=== PATIENT | male | born 1935 | race Caucasian/White ===

== ENCOUNTER → 2016-03-12 | Outpatient (CLI) | payer MEDICARE, BC ==
[~2016-03-12] MED LIST: ATEN25TA PO; DIAZ5TAB PO; DICL1TAB63 PO; LEVA500T PO; LIPI20TA PO; MELO-1 PO; METO25TA3 PO; OMEP20CA2 PO; OXYC1TAB63 PO; WALKER WHEELS/F1 MIS; XARE10TA PO
[2016-03-12 11:52] LABS: AUTOMATED NEUTROPHIL # 6.9 TH/MM3 (1.8-7.7); BASOPHIL % 0.5 % (0.0-2.0); EOSINOPHIL # 0.1 TH/MM3 (0-0.4); EOSINOPHIL % 0.9 % (0.0-4.0); HEMATOCRIT 45.6 % (39.0-51.0); HEMO FLAGS DIFF FINAL; LYMPH % 14.9 % (9.0-44.0); LYMPHOCYTE # 1.4 TH/MM3 (1.0-4.8); MEAN CORPUSCULAR HEMOGLOBIN 31.1 PG (27.0-34.0); MEAN CORPUSCULAR HGB CONC 34.2 % (32.0-36.0); MONO % 7.7 % (0.0-8.0); PLATELET COUNT 322 TH/MM3 (150-450); RED BLOOD COUNT 5.02 MIL/MM3 (4.50-5.90); RED CELL DISTRIBUTION WIDTH 13.5 % (11.6-17.2); WHITE BLOOD COUNT 9.1 TH/MM3 (4.0-11.0)
[2016-03-12 11:57] LABS: APTT (PATIENT) 26.9 SEC (24.3-30.1); INTERNATIONAL NORMALIZED RATIO 1.2 RATIO; PROTHROMBIN TIME - PATIENT 13.5 SEC (9.8-11.6)
[2016-03-12 12:22] LABS: ALKALINE PHOSPHATASE 126 U/L (45-117); ALT (GPT) 28 U/L (12-78); ANION GAP 7 MEQ/L (5-15); AST (GOT) 16 U/L (15-37); BICARBONATE 29.8 MEQ/L (21.0-32.0); BLOOD UREA NITROGEN 12 MG/DL (7-18); CHLORIDE 104 MEQ/L (98-107); GLOMERULAR FILTRATION RATE 90 ML/MIN (>89); GLUCOSE,FASTING 119 MG/DL (74-99); POTASSIUM 4.2 MEQ/L (3.5-5.1); SODIUM (NA) 141 MEQ/L (136-145); TOTAL BILIRUBIN ADULT 0.6 MG/DL (0.2-1.0)
[2016-03-12 12:29] LABS: BLOOD, URINE NEG (NEG); GLUCOSE,URINE NEG (NEG); KETONE, URINE NEG (NEG); MUCUS URINE FEW /lpf (OCC); NITRITE,URINE NEG (NEG); PH, URINE 5.5 (5.0-8.5); URINE COLOR YELLOW (YELLW/STRAW)
[2016-03-12 12:36] LABS: COMMENT (UR) CULT NOT INDICATED; CULTURE IF INDICATED CULT NOT INDICATED
--- NOTE | 2016-03-13 12:09 | EKG ---
Date Performed: 03/12/2016 Time Performed: 11:18:06 PTAGE: 80 years EKG: Sinus rhythm WITH SINUS ARRHYTHMIA NONSTEPECIFIC ST DEPRESSION ABNORMAL ECG PREVIOUS TRACING : 06/01/2004 11.04 DOCTOR: Armen Barrera Interpretating Date/Time 03/13/2016 12:07:57
== END ==
LOC: CPRE 10:36
PROVIDERS: ATTEND Orthopaedic Surgery Sports Medicine
DX: Z01.810 Encounter for preprocedural cardiovascular examination (principal); Z01.811 Encounter for preprocedural respiratory examination; Z01.812 Encounter for preprocedural laboratory examination; M79.609 Pain in unspecified limb; Z96.60 Presence of unspecified orthopedic joint implant; R94.31 Abnormal electrocardiogram [ECG] [EKG]
CPT/HCPCS: 36415; 80053; 81001; 85025; 85610; 85730; 93005

== ENCOUNTER 2016-03-25 10:48 | Observation (INO) | payer MEDICARE, BC ==
[~2016-03-25] VITALS: Ht 180.3 cm; Wt 62.8 kg
[~2016-03-25 10:48] MED LIST changes: -ATEN25TA PO; -DICL1TAB63 PO; -LEVA500T PO; -MELO-1 PO; -OXYC1TAB63 PO; -WALKER WHEELS/F1 MIS; -XARE10TA PO
[2016-03-25 11:00] VITALS: BP 111/65; PULSE 66; RESP 16; TEMP 97.6; O2SAT 99
[2016-03-25] MEDS ORDERED: VANCOMYCIN HCL 1000 MG VIAL ONE (11:37)
[2016-03-25] MEDS ORDERED: SODIUM CHLOR 0.9% 250 ML INJ 250 ML ONE (11:37)
[2016-03-25] MEDS ORDERED: PROPOFOL 200 MG/20 ML AMP IV ONE (12:00)
[2016-03-25] MEDS ORDERED: GENTAMICIN SULFATE 80 MG/2 ML VIAL ONE (12:07)
[2016-03-25] MEDS ORDERED: INSULIN HUMAN REGULAR 1,000 UNITS/10 ML VIAL SQ PRN (12:30)
[2016-03-25] MEDS ORDERED: TRANEXAMIC ACID 1 GM PRIOR TO PROCEDURE IV SCH ×2 (12:30)
[2016-03-25] MEDS ORDERED: METOPROLOL TARTRATE 25 MG TAB PO PRN (12:30)
[2016-03-25] MEDS ORDERED: TRANEXAMIC ACID 1 GM POST-OP IV SCH ×2 (12:30)
[2016-03-25] MEDS ORDERED: CHLORHEXIDINE GLUCONATE 4% SOLN 120 ML BTL TOP SCH (12:30)
[2016-03-25] MEDS ORDERED: LACTATED RINGER'S 1000 ML IV SCH (12:30)
[2016-03-25] MEDS ORDERED: ceFAZolin 2 GM PREMIX 50 ML IV SCH (12:30)
[2016-03-25] MEDS ORDERED: SODIUM CHLORID 0.9% 500 ML IV SCH (12:30)
[2016-03-25] MEDS ORDERED: VANCOMYCIN 1000 MG/NS 250 ML (for <70 kg) IV SCH ×2 (12:30)
[2016-03-25] MEDS ORDERED: MIDAZOLAM HCL 5 MG/5 ML VIAL ONE (13:28)
[2016-03-25] MEDS ORDERED: MIDAZOLAM HCL 2 MG/2 ML VIAL ONE (14:27)
[2016-03-25] MEDS ORDERED: fentaNYL CITRATE 250 MCG/5 ML AMP ONE (14:27)
[2016-03-25] MEDS ORDERED: ACETAMINOPHEN 1000 MG/100 ML VIAL IV ONE (14:27)
[2016-03-25] MEDS ORDERED: FAMOTIDINE 20 MG/2 ML VIAL ONE (14:27)
[2016-03-25] MEDS ORDERED: HYDROmorphone HCL PF 2 MG/ML VIAL ONE (15:00)
[2016-03-25] MEDS ORDERED: BUPIVACAINE LIPOSO PF 1.3% INJ 20 ML in SODIUM CHLORIDE 0.9% INJ 40 ML PERIART ONE (16:00)
[2016-03-25] MEDS: LACTATED RINGER'S 1000 ML INJ 1,000 ML IV SCH (18:00)
[2016-03-25] MEDS ORDERED: SODIUM CHLORIDE 0.9% FLUSH 5 ML FLUSH IVF PRN (18:00)
[2016-03-25] MEDS ORDERED: MORPHINE SULFATE 30 MG/30 ML PCA IV SCH (18:00)
[2016-03-25] MEDS ORDERED: MISCELLANEOUS NURSING INFORMATION XX PRN (18:00)
[2016-03-25] MEDS ORDERED: oxyCODONE/ACETAMINOPHEN 5 MG/325 MG TAB PO PRN (18:00)
[2016-03-25] MEDS ORDERED: NALOXONE HCL 0.4 MG/ML AMP IV PRN (18:00)
[2016-03-25] MEDS ORDERED: ZOLPIDEM TARTRATE 5 MG TAB PO PRN (18:00)
[2016-03-25] MEDS ORDERED: MISCELLANEOUS PHARMACY INFORMATION XX ONE (18:00)
[2016-03-25] MEDS ORDERED: Post-op Orders (for Pharmacy) MISC XX ONE (18:00)
[2016-03-25] MEDS ORDERED: ONDANSETRON HCL 4 MG/2 ML VIAL IVP PRN (18:00)
--- NOTE | 2016-03-25 18:06 | PD.OP ---
Operative Report Preoperative Diagnosis: (1) Osteoarthritis of left knee Postoperative Diagnosis: (1) Osteoarthritis of left knee Procedure: Left knee unicompartmental replacement Anesthesia: Femoral block and General Surgeon: Davion Armenta MD Painter Mirror(s): John FORTE Operation and Findings: see op note Davion Armenta MD Mar 25, 2016 18:06
[2016-03-25] MEDS ORDERED: DO NOT ADM ANY ANTICOAGULANT DRUGS XX PRN (18:15)
[2016-03-25] MEDS ORDERED: *MEPERIDINE 25 MG INJ VIAL PERIprocedural Use ONLY ONE (18:24)
[2016-03-25] MEDS ORDERED: LORazepam 2 MG/ML VIAL ONE (18:55)
--- NOTE | 2016-03-25 19:20 | RADRPT ---
EXAM DATE/TIME: 03/25/2016 18:48 [facility] COMPARISON: No previous studies available for comparison. INDICATIONS : Post operative left knee. MEDICAL HISTORY : None. SURGICAL HISTORY : None. ENCOUNTER: Initial ACUITY: 1 day PAIN SCORE: Non-responsive. LOCATION: Left knee. FINDINGS: Changes of medial compartment arthroplasty noted, appears intact and normally aligned. No loose shreyas s seen. No acute complication demonstrated. CONCLUSION: Expected radiographic appearance after medial compartment arthroplasty. Juan Jose Catalan MD on March 25, 2016 at 19:17 Board Certified Radiologist. This report was verified electronically.
[2016-03-25] MEDS: SODIUM CHLORIDE 0.9% FLUSH 5 ML FLUSH IVF SCH (21:00)
[2016-03-25 22:30] VITALS: BP 127/67; PULSE 105; RESP 21; TEMP 96.7; O2SAT 96
[2016-03-26] VITALS (7 sets, daily range): BP systolic 124–160; BP diastolic 63–75; PULSE 93–129; RESP 17–20; TEMP 96.8–99; O2SAT 93–96
[2016-03-26] MEDS: PCA - TOTAL MG MORPHINE DELIVERED PER SHIFT SCH ×3 (03:26→22:00)
[2016-03-26] MEDS: LACTATED RINGER'S 1000 ML INJ 1,000 ML IV SCH ×2 (06:30→18:31)
--- NOTE | 2016-03-26 08:30 | PD.ORT.PN ---
Subjective Subjective Remarks Patient comfortable. Pain controlled. Objective Vitals Vital Signs Date Time Temp Pulse Resp B/P Pulse Ox O2 Delivery O2 Flow Rate FiO2 03/26/16 04:59 97.8 93 18 124/67 95 03/26/16 03:26 16 03/26/16 00:56 96.8 107 18 140/69 96 03/25/16 22:30 96.7 105 21 127/67 96 03/25/16 21:00 97.7 84 16 130/80 97 Nasal Cannula 2 03/25/16 20:00 84 14 130/72 99 Nasal Cannula 2 03/25/16 19:30 97.0 69 13 129/77 97 Nasal Cannula 2 03/25/16 19:15 72 15 128/74 98 Nasal Cannula 2 03/25/16 19:00 88 14 146/69 96 Nasal Cannula 2 03/25/16 18:46 20 03/25/16 18:45 85 14 140/85 98 Nasal Cannula 2 03/25/16 18:30 78 15 141/74 95 Nasal Cannula 2 03/25/16 18:15 85 16 150/78 100 Nasal Cannula 2 03/25/16 18:00 85 14 148/65 100 Nasal Cannula 2 03/25/16 17:42 97.1 86 14 138/78 98 Nasal Cannula 2 03/25/16 11:00 97.6 66 16 111/65 99 I/O 03/25/16 03/25/16 03/25/16 03/26/16 03/26/16 03/26/16 07:00 15:00 23:00 07:00 15:00 23:00 Intake Total 1325 ml 240 ml Output Total 820 ml 300 ml Balance 505 ml -60 ml Intake Oral 240 ml IV Total 325 ml Other 1000 ml Output Urine Total 670 ml 300 ml Estimated Blood Loss 150 ml # Voids 1 2 # Bowel Movements 0 Procedures Left Knee Unicompartmental Arthroplasty Objective Remarks Left knee annabel wrap and knee immobilizer in place calves soft negative homans NVI Assessment & Plan Ortho Post Op Day #: 1 Problem List: Assessment and Plan Pain management - Percocet DVT prophylaxis - Xarelto Physical therapy - WBAT Orthopedically stable of discharge D/C planning - Home with [facility] today F/U in [address] Armenta or REANNA in office John Preston Mar 26, 2016 08:30
[2016-03-26] MEDS ORDERED: XARE10TA PO (08:36)
[2016-03-26] MEDS ORDERED: WALKER WHEELS/F1 MIS (08:36)
[2016-03-26] MEDS ORDERED: OXYC1TAB63 PO (08:36)
--- NOTE | 2016-03-26 08:38 | HHI.FF ---
Face to Face Verification Diagnosis: (1) Osteoarthritis of left knee Physical Therapy Gait training Knee: Other (Unicompartmental arthroplasty), Full weight bearing Right LE Weight Bearing: WB as tolerated Right LE Range of Motion: Active ROM Left LE Weight Bearing: WB as tolerated Left LE Range of Motion: Active Assistive ROM I have seen patient Luis Enrique Sumner on 03/26/16. My clinical findings support the need for the requested home health care services because: High risk of falls I certify that my clinical findings support that this patient is homebound because: Post-op weakness John Preston Mar 26, 2016 08:38
[2016-03-26] MEDS: SODIUM CHLORIDE 0.9% FLUSH 5 ML FLUSH IVF SCH ×2 (08:49→21:00)
[2016-03-26] MEDS: oxyCODONE/ACETAMINOPHEN 5 MG/325 MG TAB PO PRN (10:55)
[2016-03-26] MEDS: RIVAROXABAN 10 MG TAB PO SCH (16:21)
[2016-03-26] MEDS ORDERED: DIAZEPAM 5 MG TAB PO ONE (18:15)
[2016-03-27 03:22] VITALS: BP 144/72; PULSE 119; RESP 18; TEMP 100; O2SAT 93
[2016-03-27] MEDS: PCA - TOTAL MG MORPHINE DELIVERED PER SHIFT SCH ×3 (06:00→22:00)
--- NOTE | 2016-03-27 07:09 | PD.ORT.PN ---
Subjective Subjective Remarks Patient alert and oriented. Appropriately answered questions. at bedside. Low grade fever last night. Pain controlled. Objective Vitals Vital Signs Date Time Temp Pulse Resp B/P Pulse Ox O2 Delivery O2 Flow Rate FiO2 03/27/16 03:22 100.0 119 18 144/72 93 03/26/16 23:45 98.8 120 20 131/72 94 03/26/16 20:25 99.0 129 19 160/75 93 03/26/16 16:22 98.8 113 18 149/72 93 03/26/16 12:11 97.0 109 17 133/63 93 03/26/16 11:55 18 03/26/16 08:03 97.3 94 17 129/66 95 I/O 03/26/16 03/26/16 03/26/16 03/27/16 03/27/16 03/27/16 07:00 15:00 23:00 07:00 15:00 23:00 Intake Total 240 ml 720 ml 360 ml 240 ml Output Total 300 ml 400 ml Balance -60 ml 320 ml 360 ml 240 ml Intake Oral 240 ml 720 ml 360 ml 240 ml Output Urine Total 300 ml 400 ml # Voids 2 1 3 5 # Bowel Movements 0 0 0 Procedures Left Knee Unicompartmental Arthroplasty Objective Remarks Left knee annabel wrap and knee immobilizer in place ice applied calves soft negative homans NVI Assessment & Plan Assessment and Plan POD #2 Pain management - Percocet DVT prophylaxis - Xarelto Physical therapy - WBAT Orthopedically stable of discharge, when medically cleared. D/C planning - anticipating home with [facility] today F/U in [address] Armenta or REANNA in office John Preston Mar 27, 2016 07:08
[2016-03-27] MEDS: LACTATED RINGER'S 1000 ML INJ 1,000 ML IV SCH ×2 (07:30→20:00)
[2016-03-27 07:47] VITALS: BP 126/72; PULSE 114; RESP 17; TEMP 98.2; O2SAT 96
[2016-03-27] MEDS: SODIUM CHLORIDE 0.9% FLUSH 5 ML FLUSH IVF SCH ×2 (08:28→20:51)
[2016-03-27] MEDS ORDERED: ACETAMINOPHEN 325 MG TAB PO ONE (10:15)
--- NOTE | 2016-03-27 10:28 | PD.CONS ---
[facility] for confusion Reason for Consult Episode of confusion and Primary Care Physician Juan Jose Sena MD Diagnoses: History of Present Illness Patient is a very pleasant 80-year-old male who was admitted under orthopedic services and underwent left knee knee replacement March 27. Patient states that had been increasing pain of the left knee for over a year now and finally came in for increasing pain and difficulty in ambulation. [facility] of confusion [facility]. Patient currently seen with at bedside. and patient states patient is much better today awake alert oriented 3. states that patient doesn't do well with pain medications apparently gets confused. On exam right now patient is a low- grade fever of 100. Heart rate of 120s in sinus rhythm. On review of medications patient is on Valium 5 mg twice a day for anxiety and Lopressor 25 mg daily. These were not started. Currently complaining of left knee pain, very motivated with physical therapy. Patient also states that he had some pain urinary with urination last evening. At bedside now patient voided spontaneously grossly clear urine. Patient denies any fever chills no cough no chest pain or shortness of breath. states he is back to his baseline. Review of Systems Constitutional: DENIES: Diaphoretic episodes, Fatigue, Fever, Weight gain, Weight loss, Chills, Dizziness, Change in appetite, Night Sweats Endocrine: DENIES: Heat/cold intolerance, Polydipsia, Polyuria, Polyphagia Eyes: DENIES: Blurred vision, Diplopia, Eye inflammation, Eye pain, Vision loss , Photosensitivity, Double Vision Ears, nose, mouth, throat: DENIES: Tinnitus, Hearing loss, Vertigo, Nasal discharge, Oral lesions, Throat pain, Hoarseness, Ear Pain, Running Nose, Epistaxis, Sinus Pain, Toothache, Odynophagia Respiratory: DENIES: Apneas, Cough, Snoring, Wheezing, Hemoptysis, Sputum production, Shortness of breath Cardiovascular: DENIES: Chest pain, Palpitations, Syncope, Dyspnea on Exertion , PND, Lower Extremity Edema, Orthopnea, Claudication Gastrointestinal: DENIES: Abdominal pain, Black stools, Bloody stools, Constipation, Diarrhea, Nausea, Vomiting, Difficulty Swallowing, Anorexia Genitourinary: DENIES: Sexual dysfunction, Urinary frequency, Urinary incontinence, Urgency, Hematuria, Dysuria, Nocturia, Penile Discharge, Testicular Pain, Testicular Swelling Musculoskeletal: COMPLAINS OF: Joint pain Integumentary: DENIES: Abnormal pigmentation, Nail changes, Pruritus, Rash Hematologic/lymphatic: DENIES: Bruising, Lymphadenopathy Immunologic/allergic: DENIES: Eczema, Urticaria Neurologic: COMPLAINS OF: Abnormal gait (difficulty ambulation due to knee pain ) Psychiatric: COMPLAINS OF: Anxiety (chronic history of anxiety taking Valium twice a) Past Family Social History Allergies: Coded Allergies: No Known Allergies (Verified , 03/25/16) Past Medical History Hypertension Hyperlipidemia Acid peptic disease Past Surgical History Cervical spinal surgery years ago Right rotator cuff surgery Reported Medications 5 mg twice a day Lopressor 25 mg daily Lipitor 20 mg bedtime omeprazole daily 1 Family History Noncontributory Social History History of smoking quit many many years ago Occasional wine Physical Exam Vital Signs Vital Signs Date Time Temp Pulse Resp B/P Pulse Ox O2 Delivery O2 Flow Rate FiO2 03/27/16 07:47 98.2 114 17 126/72 96 03/27/16 03:22 100.0 119 18 144/72 93 03/26/16 23:45 98.8 120 20 131/72 94 03/26/16 20:25 99.0 129 19 160/75 93 03/26/16 16:22 98.8 113 18 149/72 93 03/26/16 12:11 97.0 109 17 133/63 93 03/26/16 11:55 18 Physical Exam GENERAL: This is a well-nourished, well-developed patient, in no apparent distress. Awake alert oriented 3 SKIN: No rashes, ecchymoses or lesions. Cool and dry. HEAD: Atraumatic. Normocephalic. No temporal or scalp tenderness. EYES: Pupils equal round and reactive. Extraocular motions intact. No scleral icterus. No injection or drainage. ENT: Nose without bleeding, purulent drainage or septal hematoma. Throat without erythema, tonsillar hypertrophy or exudate. Uvula midline. Airway patent. NECK: Trachea midline. No JVD or lymphadenopathy. Supple, nontender, no meningeal signs. CARDIOVASCULAR: Regular rhythm without murmurs, gallops, or rubs. Tachycardic heart rate 1:15 in sinus rhythm RESPIRATORY: Clear to auscultation. Breath sounds equal bilaterally. No wheezes , rales, or rhonchi. GASTROINTESTINAL: Abdomen soft, non-tender, nondistended. No hepato-splenomegaly , or palpable masses. No guarding. MUSCULOSKELETAL: Extremities without clubbing, cyanosis, or edema. No joint tenderness, effusion, or edema noted. No calf tenderness. Negative Homans sign bilaterally. Left knee with post op dressing and elastic dressing in place NEUROLOGICAL: Awake and alert. Cranial nerves II through XII intact. Motor and sensory grossly within normal limits. Five out of 5 muscle strength in all muscle groups. Normal speech. Imaging Last Impressions Knee X-Ray 03/25/16 0000 Signed Impressions: Service Date/Time: Friday, March 25, 2016 18:48 - CONCLUSION: Expected radiographic appearance after medial compartment arthroplasty. Juan Jose Catalan MD Assessment and Plan Assessment and Plan 80-year-old male Status post left unicompartmental arthroplasty 03/26 Orthopedics following Change in mental status -post op - improved multifactorial. Monitor on po pain meds - minimize pain meds SIRS- Low-grade fever. tachycardia Check CXR- for post op atelectasis check CBC, CMP, UA, - Encourage incentive spirometry efforts. Tylenol prn for fever History of anxiety disorder Patient chronic benzos Valium 5 mg twice a day will restart this to prevent withdrawal Tachycardia multifactorial patient did have low-grade fever patient on chronic beta katlin and chronic benzos Patient is also on Lopressor 25 mg unclear this is for hypertension. Will restart and monitor Xarelto for DVT prophylaxis per orthopedic service Thank you for this consult we'll follow patient in-house with you Modesta Otoole MD Mar 27, 2016 10:28
[2016-03-27] MEDS: oxyCODONE/ACETAMINOPHEN 5 MG/325 MG TAB PO PRN (10:40)
[2016-03-27 10:48] LABS: BLOOD, URINE TRACE (NEG); GLUCOSE,URINE NEG (NEG); KETONE, URINE NEG (NEG); NITRITE,URINE NEG (NEG); PH, URINE 6.5 (5.0-8.5); URINE COLOR LIGHT-YELLOW (YELLW/STRAW)
[2016-03-27 10:49] LABS: COMMENT (UR) CULT NOT INDICATED; CULTURE IF INDICATED CULT NOT INDICATED
[2016-03-27] MEDS ORDERED: DIAZEPAM 5 MG TAB PO SCH (11:00)
[2016-03-27] MEDS ORDERED: METOPROLOL TARTRATE 25 MG TAB PO SCH (11:00)
[2016-03-27] MEDS: PANTOPRAZOLE SOD 40 MG DELAYED RELEASE TAB PO SCH (11:40)
[2016-03-27 12:00] VITALS: BP 93/55; PULSE 114; RESP 18; TEMP 98.6; O2SAT 94
[2016-03-27 12:34] LABS: AUTOMATED NEUTROPHIL # 14.6 TH/MM3 (1.8-7.7); BASOPHIL % 0.2 % (0.0-2.0); EOSINOPHIL % 0.1 % (0.0-4.0); HEMATOCRIT 46.4 % (39.0-51.0); LYMPH % 8.4 % (9.0-44.0); LYMPHOCYTE # 1.6 TH/MM3 (1.0-4.8); MEAN CELL VOLUME 92.2 FL (80.0-100.0); MEAN CORPUSCULAR HEMOGLOBIN 30.9 PG (27.0-34.0); MEAN CORPUSCULAR HGB CONC 33.5 % (32.0-36.0); MONO % 15.2 % (0.0-8.0); NEUT % 76.1 % (16.0-70.0); PLATELET COUNT 219 TH/MM3 (150-450); RED BLOOD COUNT 5.03 MIL/MM3 (4.50-5.90); RED CELL DISTRIBUTION WIDTH 13.6 % (11.6-17.2); WHITE BLOOD COUNT 19.2 TH/MM3 (4.0-11.0)
[2016-03-27 12:37] LABS: HEMO FLAGS AUTO DIFF
[2016-03-27 13:07] LABS: ALKALINE PHOSPHATASE 108 U/L (45-117); ALT (GPT) 21 U/L (12-78); ANION GAP 9 MEQ/L (5-15); AST (GOT) 27 U/L (15-37); BICARBONATE 26.5 MEQ/L (21.0-32.0); BLOOD UREA NITROGEN 13 MG/DL (7-18); CHLORIDE 99 MEQ/L (98-107); GLOMERULAR FILTRATION RATE 64 ML/MIN (>89); POTASSIUM 3.8 MEQ/L (3.5-5.1); SODIUM (NA) 134 MEQ/L (136-145); TOTAL BILIRUBIN ADULT 1.2 MG/DL (0.2-1.0)
[2016-03-27 13:19] LABS: PLATELET ESTIMATE SMEAR NORMAL (NORMAL); PLATELET MORPHOLOGY NORMAL (NORMAL); SCAN/DIFF AUTO DIFF CONFIRMED
--- NOTE | 2016-03-27 14:57 | RADRPT ---
EXAM DATE/TIME: 03/27/2016 14:37 [facility] COMPARISON: CHEST PA & LAT, January 22, 2016, 10:51. INDICATIONS : Fever. MEDICAL HISTORY : None. SURGICAL HISTORY : None. ENCOUNTER: Subsequent ACUITY: 2 days PAIN SCORE: 0/10 LOCATION: Bilateral chest FINDINGS: Single portable upright view of the chest demonstrates a new 1.0 cm ovoid opacity projecting over the mid left lung. This was not present on prior January 2016 exam. This may represent a foreign body e xternal to the patient. The lungs are otherwise clear. Heart size is normal. Pulmonary vasculature is normal. Osseous structures are straight severe bilateral degenerative changes of the shoulders and partially imaged anterior cervical spine fusion. CONCLUSION: New ovoid opacity projecting over the mid left hemithorax. This may be external to th e patient. Recommend upright PA lateral views when clinically able. Otherwise unremarkable exam. Marina Davison MD on March 27, 2016 at 14:53 Board Certified Radiologist. This report was verified electronically.
[2016-03-27 16:00] VITALS: BP 129/65; PULSE 103; RESP 18; TEMP 97.5; O2SAT 96
[2016-03-27] MEDS ORDERED: LEVOFLOXACIN 500 MG PREMIX INJ 100 ML IV SCH (17:00)
[2016-03-27] MEDS: RIVAROXABAN 10 MG TAB PO SCH (17:30)
[2016-03-27 20:00] VITALS: BP 129/70; PULSE 119; RESP 20; TEMP 99.1; O2SAT 94
[2016-03-27] MEDS: METOPROLOL TARTRATE 25 MG TAB PO SCH (20:48)
--- NOTE | 2016-03-27 20:48 | RADRPT ---
EXAM DATE/TIME: 03/27/2016 20:37 [facility] COMPARISON: No previous studies available for comparison. INDICATIONS : Short of breath. MEDICAL HISTORY : None. SURGICAL HISTORY : None. ENCOUNTER: Initial ACUITY: 3 days PAIN SCORE: 0/10 LOCATION: Bilateral chest FINDINGS: PA and lateral views of the chest demonstrates hyperinflation which can be seen with CO PD. No infiltrates are seen. Heart is normal in size. The mediastinal contours are unremarkable. O sseous structures are intact. CONCLUSION: Hyperinflation which can be seen with COPD. No acute cardiopulmonary disease an d no evidence for an infiltrate. Pablo Jalloh MD on March 27, 2016 at 20:47 Board Certified Radiologist. This report was verified electronically.
[2016-03-27] MEDS: DIAZEPAM 5 MG TAB PO SCH (20:49)
[2016-03-28] VITALS: BP 114/65; PULSE 89; RESP 18; TEMP 99.4; O2SAT 95
[2016-03-28 04:53] VITALS: BP 115/64; PULSE 97; RESP 17; TEMP 100; O2SAT 96
[2016-03-28] MEDS: PCA - TOTAL MG MORPHINE DELIVERED PER SHIFT SCH ×2 (06:00→08:11)
--- NOTE | 2016-03-28 07:49 | PD.ORT.PN ---
Subjective Subjective Remarks Patient comfortable. Pain controlled. at bedside. Objective Vitals Vital Signs Date Time Temp Pulse Resp B/P Pulse Ox O2 Delivery O2 Flow Rate FiO2 03/28/16 04:53 100.0 97 17 115/64 96 03/28/16 00:00 99.4 89 18 114/65 95 03/27/16 20:00 99.1 119 20 129/70 94 03/27/16 16:00 97.5 103 18 129/65 96 03/27/16 12:00 98.6 114 18 93/55 94 03/27/16 11:40 18 03/27/16 11:40 18 03/27/16 07:47 98.2 114 17 126/72 96 I/O 03/27/16 03/27/16 03/27/16 03/28/16 03/28/16 03/28/16 07:00 15:00 23:00 07:00 15:00 23:00 Intake Total 240 ml 840 ml 240 ml Balance 240 ml 840 ml 240 ml Intake Oral 240 ml 840 ml 240 ml # Voids 5 5 2 # Bowel Movements 0 0 0 Result Diagram: 03/27/16 1155 03/27/16 1155 Imaging Last 24 hours Impressions Chest X-Ray 03/27/16 1414 Signed Impressions: Service Date/Time: Sunday, March 27, 2016 14:37 - CONCLUSION: New ovoid opacity projecting over the mid left hemithorax. This may be external to the patient. Recommend upright PA lateral views when clinically able. Otherwise unremarkable exam. Marina Davison MD Procedures Left Knee Unicompartmental Arthroplasty Objective Remarks Left knee annabel wrap and knee immobilizer removed dressing C/D/I calves soft negative homans NVI Assessment & Plan Assessment and Plan POD #3 WBC 19.2 - medical management involved Pain management - Percocet DVT prophylaxis - Xarelto Physical therapy - WBAT Orthopedically stable of discharge, when medically cleared. D/C planning - anticipating home with [facility] today F/U in [address] Armenta or REANNA in office John Preston Mar 28, 2016 07:49
[2016-03-28 08:00] VITALS: BP 125/71; PULSE 96; RESP 18; TEMP 98.1; O2SAT 96
[2016-03-28] MEDS: LACTATED RINGER'S 1000 ML INJ 1,000 ML IV SCH (08:11)
[2016-03-28] MEDS: METOPROLOL TARTRATE 25 MG TAB PO SCH (08:14)
[2016-03-28] MEDS: SODIUM CHLORIDE 0.9% FLUSH 5 ML FLUSH IVF SCH (08:14)
[2016-03-28] MEDS: PANTOPRAZOLE SOD 40 MG DELAYED RELEASE TAB PO SCH (08:14)
[2016-03-28] MEDS: DIAZEPAM 5 MG TAB PO SCH (08:14)
--- NOTE | 2016-03-28 08:17 | MP ---
cc: JULISSA JOY M.D. DATE OF SURGERY: 03/25/2016 PREOPERATIVE DIAGNOSIS: Left knee severe medial compartment osteoarthritis. POSTOPERATIVE DIAGNOSIS Left knee severe medial compartment osteoarthritis. PROCEDURE Left total knee arthroplasty using [employer] medial compartment size 5 femoral component, size 4 tibial component with a 8 mm polyethylene. ANESTHETIC General and femoral block. SURGEON Julissa Joy MD CHIEF RADIOLOGY SURGEON REANNA Arora ESTIMATED BLOOD LOSS Minimum. DRAIN None. SPECIMEN None. COMPLICATIONS None known. INDICATION Luis Enrique Sumner is a 80-year-old male with severe debilitating medial compartment osteoarthritis. He has had a long course of conservative management and has failed, is indicated for unicompartmental arthroplasty. The option of total knee arthroplasty was reviewed as well. A detailed informed consent was obtained. The payroll and benefits assistant John Preston is an advanced registered nurse practitioner and his skill set was medically necessary, he assisted with retracting vital structures, helping hold the extremity and was medically necessary for the performance of the operation. PROCEDURE The patient was given a femoral block, brought to the operating room and placed under general anesthetic. The left lower extremity was draped and prepped in usual sterile fashion. IV antibiotics were given. Time-out was completed. The limb was exsanguinated and tourniquet inflated. Inferior medial incision was made and taken through subcutaneous tissue. Hemostasis was obtained with the use of electrocautery, we placed deep retractors, noted to be bone on bone arthritis of the medial compartment. We used extramedullary tibial alignment guide, performed a 2 mm cut on the lowest point of the tibia. We used our reciprocating vertically oriented saw and then our horizontal saw to complete the cuts. We sized this and size 4 was most appropriate. We then proceeded with our distal femoral cut with 1 mm pete and then proceeded with measuring and a size 5 for the femur and we used a size 5 cutting block and proceeded with our anterior gouge and cutting osteotome and posterior cut and then our mid cut. Drill holes were made and bony fragments removed and the edges trimmed and osteophytes also removed from the edge and then proceeded and placed our trial reduction where we noted excellent range of motion and stability with the 8-mm prosthesis. At this point the components were placed on the field. We made our finishing cuts on the tibia and then proceeded with pulse lavage antibiotic irrigation and then proceeded to pressurize our bone cement. We did place all of our components, removed residual bone cement. We trialed up to a size 9 to get extra compression and removed the bone cement at the edge of the prosthesis to allow the bone cement to harden and then we trialed and we looked at the size 7, size 8, size 9 and the final component was size 8. This allowed full extension with a gentle push and gravity flexion to 140 degrees and excellent stability with varus valgus stress testing. We then let the tourniquet down at 58 minutes after 11 minutes of hardening and then checked the edge of the prosthesis for removal of extra bone cement. We placed our final polyethylene and again irrigated out with copious amounts of irrigation, obtained excellent hemostasis. Drain was not required. We injected long-acting Marcaine and then proceeded to anatomically repair in layers starting with the fat pad and then the extensor mechanism, then the subcuticular. Steri-Strips were applied. Sterile dressing was applied. The patient was awoken and returned to the recovery room in stable condition. MD CHARLEEN Godinez/STEPHEN /6:22 PM /7:58 AM
[2016-03-28 12:00] VITALS: BP 123/80; PULSE 82; RESP 18; TEMP 98.3; O2SAT 93
[2016-03-28] MEDS ORDERED: ePHEDrine/NS 50 MG/5 ML SYR IV ONE (12:00)
[2016-03-28] MEDS ORDERED: ONDANSETRON HCL 4 MG/2 ML VIAL IV PUSH ONE (12:00)
--- NOTE | 2016-03-28 14:54 | HHI.PR ---
Subjective Remarks T down- no fever or chills no cough wanting to go home d/w - to increase fluid and high fibre diet Objective Vitals Vital Signs Date Time Temp Pulse Resp B/P Pulse Ox O2 Delivery O2 Flow Rate FiO2 03/28/16 12:00 98.3 82 18 123/80 93 03/28/16 08:00 98.1 96 18 125/71 96 03/28/16 04:53 100.0 97 17 115/64 96 03/28/16 00:00 99.4 89 18 114/65 95 03/27/16 20:00 99.1 119 20 129/70 94 03/27/16 16:00 97.5 103 18 129/65 96 I/O 03/27/16 03/27/16 03/27/16 03/28/16 03/28/16 03/28/16 06:59 14:59 22:59 06:59 14:59 22:59 Intake Total 240 ml 840 ml 240 ml Balance 240 ml 840 ml 240 ml Intake Oral 240 ml 840 ml 240 ml # Voids 5 5 2 # Bowel Movements 0 0 0 Result Diagram: 03/27/16 1155 03/27/16 1155 Imaging Last Impressions Chest X-Ray 03/27/16 1414 Signed Impressions: Service Date/Time: Sunday, March 27, 2016 14:37 - CONCLUSION: New ovoid opacity projecting over the mid left hemithorax. This may be external to the patient. Recommend upright PA lateral views when clinically able. Otherwise unremarkable exam. Marina Davison MD Knee X-Ray 03/25/16 0000 Signed Impressions: Service Date/Time: Friday, March 25, 2016 18:48 - CONCLUSION: Expected radiographic appearance after medial compartment arthroplasty. Juan Jose Catalan MD Objective Remarks anicteric lungs clear regular rhythm abdomen-soft, nontender extremitieties left knee- post op mild joint effusion- mild erythema, no calf swelling or tenderness Procedures 03/27- left total knee arthroplasty A/P Assessment and Plan 80-year-old male Status post left unicompartmental arthroplasty 03/26 Orthopedics following Change in mental status -post op - multifactorial- Resolved. Monitor on po pain meds - minimize SIRS- Low-grade fever t max 100. HR improved Leukocytosis - repeat CBC UA, CXR ? infiltrate. continue on Levaquin for now Encourage incentive spirometry efforts. Tylenol prn for fever History of anxiety disorder Patient chronic benzos Valium 5 mg twice a day will restart this to prevent withdrawal Tachycardia - improved- patient restarted on his BB and Diazepam DC home today if WBC trending down and remains afebrile and feels clinically well Xarelto for DVT prophylaxis per orthopedic service DC today. encourage Incentive spirometry FF up with PCP- for repeat CBC as OP Instruct patient and family to come back to ER or call PCP if develops fever, chills Modesta Otoole MD Mar 28, 2016 14:54
[2016-03-28] MEDS ORDERED: METO25TA3 PO (14:59)
[2016-03-28] MEDS ORDERED: POLYETHYLENE GLYCOL 17 GM PKG PO ONE (15:00)
[2016-03-28] MEDS ORDERED: LEVA500T PO (15:02)
[2016-03-28 15:15] LABS: AUTOMATED NEUTROPHIL # 12.5 TH/MM3 (1.8-7.7); BASOPHIL % 0.3 % (0.0-2.0); EOSINOPHIL # 0.1 TH/MM3 (0-0.4); EOSINOPHIL % 0.3 % (0.0-4.0); HEMATOCRIT 43.3 % (39.0-51.0); HEMO FLAGS DIFF FINAL; LYMPHOCYTE # 1.4 TH/MM3 (1.0-4.8); MEAN CELL VOLUME 92.6 FL (80.0-100.0); MEAN CORPUSCULAR HEMOGLOBIN 31.1 PG (27.0-34.0); MEAN CORPUSCULAR HGB CONC 33.6 % (32.0-36.0); MONO % 12.7 % (0.0-8.0); NEUT % 77.7 % (16.0-70.0); PLATELET COUNT 186 TH/MM3 (150-450); RED BLOOD COUNT 4.68 MIL/MM3 (4.50-5.90); RED CELL DISTRIBUTION WIDTH 13.5 % (11.6-17.2); WHITE BLOOD COUNT 16.1 TH/MM3 (4.0-11.0)
[2016-03-28 15:53] VITALS: BP_SYST 124; BP_SYST 152; BP_DIAS 80; BP_DIAS 83; PULSE 80; PULSE 93; RESP 18; RESP 19; TEMP 98.2; TEMP 98.7; O2SAT 96; O2SAT 97
--- NOTE | 2016-03-28 21:18 | EKG ---
Date Performed: 03/27/2016 Time Performed: 14:00:30 PTAGE: 80 years EKG: Sinus rhythm WITH MARKED SINUS ARRHYTHMIA POSSIBLE LEFT ATRIAL ENLARGEMENT POSSIBLE RIGHT VENTRICULAR CONDUCTION DELAY MODERATE ST DEPRESSION ABNORMAL ECG PREVIOUS TRACING : 03/12/2016 11.18 DOCTOR: Giancarlo Prabhakar Interpretating Date/Time 03/28/2016 21:09:06
== END 2016-03-28 16:26 | disposition home or self-care (01) ==
LOC: HSDC 10:48 → HSDI 18:03 → UNDOADMIN 18:03 → N06A 21:38 → HSDI 21:38 → INTOOBSV 03-26 09:15 → HSDI 03-26 09:15 → N06A 03-26 09:15
PROVIDERS: ADMIT Orthopaedic Surgery Sports Medicine; ATTEND Orthopaedic Surgery Sports Medicine
DX: M17.12 Unilateral primary osteoarthritis, left knee (principal); M25.562 Pain in left knee; R26.2 Difficulty in walking, not elsewhere classified; R30.0 Dysuria; R00.0 Tachycardia, unspecified; I10 Essential (primary) hypertension; E78.5 Hyperlipidemia, unspecified; F41.9 Anxiety disorder, unspecified; I25.2 Old myocardial infarction
CPT/HCPCS: 01400; 27446; 64447; 71010; 71020; 73560; 80053; 81001; 85025; 87040; 93005; 94150; 97110; 97116; 97162; C1776; C9290; G0378; G8987; G8988; J0131; J0690; J1170; J1580; J1956; J2060; J2175; J2250; J2270; J2405; J3010; J3370; J7050; J7120